=== PATIENT | female | born 1990 | race American Indian/Alaskan Native ===

== ENCOUNTER 2023-02-01 11:13 | Outpatient (CLI) | payer OTHER ==
[~2023-02-01 11:13] MED LIST: TERBUTALINE SULF5 MG PO
== END 2023-02-01 11:25 | disposition home or self-care (01) ==
LOC: SONOGRAMA 11:13
PROVIDERS: ATTEND Surgery
DX: C50.811 Malignant neoplasm of overlapping sites of right female breast (principal)

== ENCOUNTER 2023-09-13 06:30 | Day surgery (SDC) | payer OTHER ==
[2023-09-11 10:28] LABS: HEMATOCRIT 30.7 % (36.0-45.00); HEMOGLOBIN 10.1 g/dL (12.0-15.00); MEAN CELL VOLUME 77.3 fL (80.00-100.00); MEAN CORPUSCULAR HEMOGLOBIN 25.4 pg (27.00-32.0); MEAN CORPUSCULAR HGB CONC 32.8 g/dl (32.0-36.0); RED BLOOD COUNT 3.97 M/uL (4.00-6.00)
[2023-09-11 10:29] LABS: PLATELET COUNT 431 K/uL (150-450)
[2023-09-11 10:31] LABS: URINE APPEARANCE Clear; URINE BILIRRUBIN Negative (NEGATIVE); URINE BLOOD Negative; URINE COLOR Yellow; URINE GLUCOSE Negative (NEGATIVE); URINE LEUKOCYTE Negative; URINE NITRATE Negative; URINE PROTEIN Negative (NEGATIVE); URINE UROBILINOGEN 0.2 E.U./dl
[2023-09-11 10:35] LABS: URINE EPITHELIAL CELLS 1.6 uL (0.0-38.8); URINE RBC 3.7 uL (0.0-20.8)
[2023-09-11 10:43] LABS: RED CELL DISTRIBUTION WIDTH 22.2 % (11.5-14.5)
[2023-09-11 11:03] LABS: URINE BACTERIA 1.2 uL (0.0-1933); URINE WBC 0.3 uL (0.0-23.2)
[2023-09-11 11:19] LABS: INR 0.98; PROTHROMBIN TIME 10.3 SECONDS (9.0-11.5)
[2023-09-11 11:34] LABS: ALBUMIN 3.9 gm/dL (3.4-5.0); BILIRUBIN TOTAL 0.19 mg/dL (0.3-1.2); CALCIUM 9.2 mg/dL (8.5-10.1); CREATININE SERUM 0.62 mg/dL (0.55-1.02); GFR 112.27; GLOBULINA 3.3 G/DL (2.4-3.5); POTASSIUM 4.46 mEq/L (3.5-5.1); TOTAL PROTEIN 7.2 gm/dL (6.4-8.2)
[~2023-09-13 06:30] MED LIST changes: +OMEPRAZOLE MAGN20 MG PO
== END 2023-09-13 20:10 | disposition home or self-care (01) ==
LOC: CIR.AMB 06:30
PROVIDERS: ATTEND Surgery
DX: C50.311 Malignant neoplasm of lower-inner quadrant of right female breast (principal); C77.3 Secondary and unspecified malignant neoplasm of axilla and upper limb lymph nodes; D48.62 Neoplasm of uncertain behavior of left breast; N60.22 Fibroadenosis of left breast; Z90.13 Acquired absence of bilateral breasts and nipples; Z20.822 Contact with and (suspected) exposure to COVID-19; I10 Essential (primary) hypertension; E11.9 Type 2 diabetes mellitus without complications; E04.1 Nontoxic single thyroid nodule
CPT/HCPCS: 19303; 38525; 19281; 19340; A9541; L8699